=== PATIENT | male | born 1950 | race Caucasian/White ===

== ENCOUNTER 2024-04-28 18:33 | Emergency (ER) | payer MEDICARE ==
[~2024-04-28] VITALS: Ht 182.9 cm; Wt 77.1 kg
[2024-04-28 19:20] LABS: BASOPHILS % (AUTO) 1.1 % (0.0-2.0); EOSINOPHILS # (AUTO) 0.2 K/uL (0.0-0.7); EOSINOPHILS % (AUTO) 4.4 % (0.0-7.0); HEMATOCRIT 41.6 % (36.7-47.1); HEMOGLOBIN 13.8 g/dL (12.5-16.3); LYMPHOCYTES % (AUTO) 23.5 % (20.5-51.5); MEAN CORPUSCULAR HGB CONC 33 g/dL (32.5-36.3); MEAN CORPUSCULAR VOLUME 93.6 fL (73.0-96.2); MONOCYTES # (AUTO) 0.4 K/uL (0.1-1.30); MONOCYTES % (AUTO) 9.9 % (0.0-11.0); NEUTROPHILS # (AUTO) 2.6 K/uL (1.8-8.9); NEUTROPHILS % (AUTO) 61.1 % (38.5-71.5); PLATELET COUNT (AUTO) 129 K/uL (152-348); RED BLOOD CELL COUNT(AUTO) 4.45 MIL/uL (4.06-5.63); RED CELL DISTRIBUTION WIDTH 13.1 % (12.1-16.2); WHITE BLOOD COUNT (AUTO) 4.2 K/uL (3.6-10.2)
[2024-04-28] MEDS ORDERED: VALACYCLOVIR HCL 500 MG TABLET ONE (19:29)
[2024-04-28 19:34] LABS: DIFFERENTIAL COMMENT 1
[2024-04-28 19:37] LABS: C-REACTIVE PROTEIN 0.26 mg/dL (0.00-0.30); MAGNESIUM 2.5 mg/dL (1.8-2.4)
[2024-04-28] MEDS: VALACYCLOVIR HCL 500 MG TABLET PO ONE (19:37)
[2024-04-28] MEDS: IV NORMAL SALINE 1000 ML BAG IV ONE (19:37)
[2024-04-28 19:47] LABS: ALANINE AMINOTRANSFERASE 14 U/L (16-63); ALBUMIN 3.8 g/dL (3.4-5.0); ALKALINE PHOSPHATASE 74 U/L (50-136); ASPARTATE AMINOTRANSFERASE < 5 U/L (15-37); BILIRUBIN,TOTAL 0.8 mg/dL (0.2-1.0); CALCIUM 9.1 mg/dL (8.5-10.1); CARBON DIOXIDE 24 mmol/L (21-32); CHLORIDE 103 mmol/L (98-107); CREATININE 1.6 mg/dL (0.6-1.3); GLUCOSE 285 mg/dL (74-106); POTASSIUM 4.5 mmol/L (3.5-5.1); SODIUM SERUM 140 mmol/L (136-145); TOTAL PROTEIN, SERUM 6.6 g/dL (6.4-8.2); UREA NITROGEN, BLOOD 29 mg/dL (7-18)
[2024-04-28 20:18] LABS: BILIRUBIN,DIRECT 0.3 mg/dL (0.0-0.2)
[2024-04-28] MEDS ORDERED: VALA100026 PO (21:26)
[2024-04-28 21:46] VITALS: BP 114/70; TEMP 98.1; O2SAT 98
== END 2024-04-28 21:47 | disposition home or self-care (01) ==
LOC: ER 18:35
DX: B02.9 Zoster without complications (principal); R53.1 Weakness; Z79.899 Other long term (current) drug therapy; E86.0 Dehydration; Z20.822 Contact with and (suspected) exposure to COVID-19; Z88.2 Allergy status to sulfonamides
CPT/HCPCS: 99285; 96360; 71045; 87426; 87804 ×2; 80076; 80048; 83735; 85025; 86140; 84484; 36415; 93005; J7040; A4606; A4663